=== PATIENT | female | born 1980 | race Caucasian/White ===

== ENCOUNTER 2022-02-08 05:30 | Emergency (ER) | payer OTHER ==
[~2022-02-08] VITALS: Ht 165.1 cm; Wt 74.8 kg
[2022-02-08 05:35] VITALS: BP 128/84
--- NOTE | 2022-02-08 06:05 | NUR ---
Patient discharged to home in stable condition. Written and verbal after care instructions given. Patient verbalizes understanding of instruction.
== END 2022-02-08 06:06 | disposition home or self-care (01) ==
LOC: ER 05:35
DX: T14.90XA Injury, unspecified, initial encounter (principal); W46.0XXA Contact with hypodermic needle, initial encounter; Y93.89 Activity, other specified; Y92.89 Other specified places as the place of occurrence of the external cause; Y99.8 Other external cause status
CPT/HCPCS: 36415; 86706; 86803; 87340; 87806